=== PATIENT | female | born 1970 | race Caucasian/White ===

== ENCOUNTER 2017-09-20 12:45 | Inpatient (IN) | payer OTHER ==
[2017-09-20] MEDS ORDERED: ONDANSETRON 4 MG/2 ML VIAL IVP PRN (17:29)
[2017-09-20] MEDS ORDERED: PROMETHAZINE HCL 25 MG/ML INJ IVP PRN (17:29)
[2017-09-20] MEDS ORDERED: ONDANSETRON DISINTEGRATING 4 MG TAB PO PRN (17:29)
[2017-09-20] MEDS ORDERED: oxyCODONE IR 5 MG TAB PO PRN (17:29)
[2017-09-20] MEDS ORDERED: PROMETHAZINE HCL 25 MG TAB PO PRN (17:29)
[2017-09-20] MEDS ORDERED: HYDROmorphONE/DILAUDID 1 MG/ML INJ IVP PRN (17:29)
--- NOTE | 2017-09-20 17:45 | PDGENHP ---
History and Physical - Chief Complaint transfer from [facility] with alcoholic pancreatitis - History of Present Illness 47 yo female with h/o anxiety, insomnia, and alcohol dependence is transferred to [facility] from [facility] for insurance purposes with alcohol induced hepatitis. She has been drinking more heavily recently due to increased anxiety and trouble sleeping. She drinks a full bottle of vodka every few days. She states her last drink was 3 weeks ago, but she is noticebly tremulous. She c/o dizzy spells (lightheaded), unstable on her feet. She began to notice abdominal swelling / bloating and yellow skin and presented to [facility]. She was found to have elevated liver enzymes and CT showed colon wall inflammation, along with an enlarged liver. She underwent ERCP due elevated WBC's and concern for cholangitis, but there was no evidence of choledocholithiasis. Some mild dilation of the ___ was noted however possibly due to cholestasis. She denies fevers/chills/sweats. A little nausea, but no vomiting. She reports diarrhea. She hasn't eaten much other than protein shakes at home. At [facility], she was treated with Ceftriaxone and Levaquin. No ERCP was recommended History Information - Allergies/Home Medication List Allergies/Adverse Reactions: No Known Allergies Allergy (Unverified 02/26/16 23:12) Home Medications: Ibuprofen [Motrin] 200 - 400 mg PO Q8 PRN 03/14/16 [Last Taken Unknown] Levothyroxine [Synthroid] 75 mcg PO DAILY06 03/14/16 [Last Taken 09/20/17] Multivitamins [Tab-A-Viola] 1 each PO DAILY 03/14/16 [Last Taken Unknown] Zolpidem Tartrate [Ambien 10 mg] 10 mg PO HS PRN 03/14/16 [Last Taken 09/19/17] Mirtazapine [Remeron] 30 mg PO HS 09/20/17 [Last Taken 09/15/17] OLANZapine [Zyprexa] 7.5 mg PO HS 09/20/17 [Last Taken 09/15/17] I have personally reviewed and updated: family history, medical history, social history, surgical history - Past Medical History Additional medical history: anxiety. insomnia. hypothyroidism. alcohol abuse - Surgical History Reports: hysterectomy Additional surgical history: - Family History Additional family history: paternal GF was an alcoholic. both parents just of cancer, dad had GBM, mom had ovarian cancer - Social History Smoking Status: Current some day smoker Alcohol Use: Heavy Drug Use: None Additional social history: Lives in [place] with a roommate. 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 Review of Systems Review of Systems: ROS: 10pt was reviewed & negative except for what was stated in HPI & below Physical Exam Physical Exam: Temp Pulse Resp BP Pulse Ox 36.4 C 93 16 103/70 97 09/20/17 15:46 09/20/17 15:46 09/20/17 15:46 09/20/17 15:46 09/20/17 15:46 O2 (L/minute) 2 Constitutional: no apparent distress Eyes: PERRL, scleral injection Ears, Nose, Mouth, Throat: dry mucous membranes Cardiovascular: regular rate and rhythym, no murmur, rub, or gallop Respiratory: no respiratory distress, clear to auscultation Gastrointestinal: other (soft, moderately distended, +TTP RUQ, epigastrium, + hepatomegaly, liver edge palpated ~4 cm below costal margin, +BS) Skin: warm Musculoskeletal: full muscle strength Neurologic: AAOx3, other (+tremor) Psychiatric: interacting appropriately Lab Data & Imaging Review 09/21/17 05:03 09/21/17 05:03 Assessment & Plan Assessment: Elevated LFT's likely due to alcoholic hepatitis - Bili was [address] [facility] yesterday, but nl INR and DF ~19, not a candidate for steroids. Reviewed imaging including CT which showed non-specific colitis and MRCP which was negative for choledocholithiasis, but did show some ductal dilatation and possible cholestasis. Discussed with GI, Dr. Nation will see in am for consideration of ERCP. NPO at midnight. Will continue Ceftriaxone and Flagyl for short course, tomorrow is day 3/5 (wbc's 20K yest). Plan for supportive care, IVF's. Trend LFT's. I did not see hepatitis panel, will send. Alcohol dependence, suspect withdrawal - she is tremulous, though says last drink was 3 weeks ago. Will initiate CIWA / prn bzd's. Anxiety - related to above. She was recently started on remeron and zyprexa but had untoward side effects and stopped these meds 1 week ago. Hyponatremia - mild, cont NS and follow Anemia - suspect BM suppression 2/2 etoh. No e/o active bleeding. Follow. Full code DVT PPLX - SCD's, ambulation Dispo - inpt, anticipate >48 hrs hospitalization for ongoing management of alcoholic hepatitis
[2017-09-20] MEDS ORDERED: NON-FORMULARY NEW DRUG (Zolpidem Tartrate [Ambien 10 Mg] 5 MG) PO PRN (18:22)
[2017-09-20] MEDS ORDERED: ZOLPIDEM TARTRATE 5 MG TAB PO PRN (18:25)
[2017-09-20 18:31] LABS: INR 1.07 (0.83-1.16); PROTIME(PATIENT) 14.1 SEC (12.0-15.0)
[2017-09-20 19:41] LABS: PLATELET COUNT 454 10^3/uL (150-400)
--- NOTE | 2017-09-20 20:10 | PDMN ---
Medical Necessity Medical necessity: Pt meets INPT criteria per and [facility] [place] Disease Complications (est. LOS >2 MN for eval/tx of elevated LFTs likely due to alcoholic hepatitis, GI consult pending for consideration of ERCP; req IVF, IVABx; alcohol withdrawal, anxiety, anemia, hyponatremia, hypokalemia).
[2017-09-21 05:44] LABS: PLATELET COUNT 412 10^3/uL (150-400)
[2017-09-21] MEDS: LEVOTHYROXINE 75 MCG TAB PO SCH (06:23)
[2017-09-21] MEDS: NS W/ 20 KCl/L 1,000 ML IV SCH ×2 (06:25→18:09)
[2017-09-21 07:34] LABS: HEPATITIS B SURFACE ANTIGEN NEGATIVE (NEGATIVE)
[2017-09-21 07:40] LABS: HEPATITIS A ANTIBODY IGM (BCH) NEGATIVE (NEGATIVE); HEPATITIS B CORE AB IGM NEGATIVE (NEGATIVE)
[2017-09-21 07:51] LABS: HEPATITIS C ANTIBODY TOTAL NEGATIVE (NEGATIVE)
[2017-09-21] MEDS: THIAMINE HCL 500 MG in NS 100 ML IV SCH (10:23)
--- NOTE | 2017-09-21 10:51 | HOSPPROG ---
Hospitalist Progress Note Assessment/Plan: 47 yo F w alcoholic hepatitis, colitis colitis: day 4/5 abx alcoholic hepatitis: low DF so no steroids follow lft's MRCP at OSH w steatosis distension: no ascites on u/s at [facility] exam not really c/w ascites check abd film to rule out constipation proph: scd's hypothyroidism: levothyroxine restarted dispo: inpt Subjective: c/o abd pain. osh rcords reviewed. d/w at [facility] Objective: Vital Signs Temp Pulse Resp BP Pulse Ox 36.7 C 92 16 103/76 93 09/21/17 10:44 09/21/17 10:44 09/21/17 10:44 09/21/17 10:44 09/21/17 10:44 Laboratory Results 09/21/17 05:03 09/21/17 05:03 09/20/17 09/21/17 09/22/17 05:59 05:59 05:59 Intake Total 975 Balance 975 PT 14.1 SEC (12.0-15.0) 09/20/17 18:10 INR 1.07 (0.83-1.16) 09/20/17 18:10 - Physical Exam Constitutional: no apparent distress, appears nourished Eyes: icteric sclera, pale conjunctiva Ears, Nose, Mouth, Throat: moist mucous membranes, hearing normal Cardiovascular: regular rate and rhythym, no murmur, rub, or gallop Respiratory: no respiratory distress, no rales or rhonchi Gastrointestinal: normoactive bowel sounds, soft, non-tender abdomen, other ( distended but no clear fluid wave) Genitourinary: No mckeon in urethra Skin: warm, normal color Musculoskeletal: full muscle strength Neurologic: AAOx3, sensation intact bilaterally Psychiatric: interacting appropriately, not anxious ICD10 Worksheet Patient Problems: Problems Problem Status Onset Anemia Acute Anxiety Acute Leukopenia Acute
[2017-09-21] MEDS: oxyCODONE IR 5 MG TAB PO PRN ×3 (13:54→23:26)
[2017-09-21] MEDS: MULTIVITAMINS 1 EACH TAB PO SCH (14:05)
[2017-09-21] MEDS: PANTOPRAZOLE SODIUM 40 MG TAB PO SCH (14:05)
[2017-09-21] MEDS: FOLIC ACID 1 MG TAB PO SCH (14:05)
--- NOTE | 2017-09-21 14:17 | GCON ---
[f rep st] CONSULTATION DATE OF CONSULTATION: 09/21/2017 CHIEF COMPLAINT: Abnormal liver function tests. REASON FOR CONSULTATION: I am asked to see this patient in consultation by Dr. Sadler for a chief c omplaint of abnormal liver tests. HISTORY OF PRESENT ILLNESS: Patient is a 47-year-old with a long history of alcohol use who was admi tted to [facility] with jaundice and noted to have abnormal liver function tests. She was evalu ated by Gastroenterology at [facility] by Dr. Linh Joaquin on September 19, 2017. An MRCP was ob tained and recommendation is that patient did not need an ERCP at this time. It was felt that her li michelle function tests were elevated from alcohol use. Discriminant function did not meet criteria for s teroids. They did recommend empiric ceftriaxone and Flagyl and an outpatient colonoscopy. Patient w as then transferred to [facility], apparently due to insurance reasons. GI consultat ion is requested for evaluation of abnormal liver tests. At this point, patient notes abdominal disc omfort in the epigastric area. No nausea or vomiting. There has been no hematemesis. She has had n o blood in her stools. No melena. She does have some intermittent loose stools, small amount of sto ol today. MRCP was done at [facility] September 19, 2017, showed enlargement of the liver with pe rihepatic ascites consistent with hepatitis. There is moderate to severe fatty infiltration, mild in trahepatic duct dilation without cholelithiasis, which could reflect cholestasis according to the rep ort. No other abnormality identified. Ultrasound of the abdomen done on 09/19/2017 shows no sonogra phic evidence of cholecystitis or cholelithiasis. There is prominent hepatomegaly and steatosis. Mi ld biliary dilation. The liver is markedly enlarged at 24 cm. ALLERGIES: No known drug allergies. MEDICATIONS: Currently, patient is on ceftriaxone that was initiated at [facility] for a 5 day course. Folic acid, Levaquin, Synthroid, lorazepam, ondansetron, thiamine. PAST MEDICAL HISTORY: Notable for alcohol abuse, anxiety, insomnia, hypothyroidism. She is status p ost hysterectomy. FAMILY HISTORY: Grandfather was alcoholic. Both parents of cancer. SOCIAL HISTORY: Patient drinks alcohol. REVIEW OF SYSTEMS: I have performed a complete review of systems, which was negative except for the pertinent positives and negatives noted above in HPI. PHYSICAL EXAMINATION: VITAL SIGNS: Afebrile at 36.7, BP 103/76, pulse 92. CONSTITUTIONAL: She is alert and oriented. EYES: No scleral icterus. ENT: No oral lesions. CARDIOVASCULAR: Regular rhy thm. CHEST: Clear to auscultation: GI: Positive bowel sounds. Large hepatomegaly. NEUROLOGICAL: Nonfocal. SKIN: No lesions. LABORATORY DATA: Here shows a BUN and creatinine of 14 and 0.5. Elevated white count is improved to day, down to 13. H and H are 9 and 26.6. Platelets 412. Pro time is normal at 14.1. Chemistries s how improvement with alkaline phosphatase of 134, AST 69, ALT 80, both of which have improved. Total bilirubin is improved to 8.8, down from 11.1 yesterday. Amylase has not been obtained this admissio n. Discriminant factor is less than 32. ASSESSMENT: 1. Elevated liver function tests secondary to alcohol consistent with alcoholic hepatitis. However, she does not make criteria for steroids and overall, her liver tests are improving. It seems that h er bilirubin is now coming down. There was some concern about a slightly dilated common bile duct on ultrasound. However, she did have an ERCP without filling defects. The opinion of the gastroentero logists at [facility] was that she does not need an ERCP, and I would concur with that, as I think we hav e an explanation for her abnormal liver function tests. 2. Abdominal pain, nonspecific. Suspect this may be from her very enlarged liver. She does not hav e any evidence of gastrointestinal bleeding at this time, although there was a CT scan report that luh lopez may have had some inflammatory changes in her colon. She is not having any bleeding or diarrhea at this time. The Gastroenterology report from [facility] suggested outpatient colonoscopy, which I think is reasonable because overall, patient would be higher risk for any diagnostic endoscopy at this time . I would prefer more conservative measures. PLAN: 1. No alcohol. 2. Would not proceed with ERCP at this time but continue to monitor her LFTs. 3. Suggest a PPI, perhaps add Carafate. Okay to advance diet. 4. Recommend colonoscopy as an outpatient. However, if patient should develop diarrhea, then I woul d recommend checking C difficile and GI path panel before considering colonoscopy. /[id number]/MODL
--- NOTE | 2017-09-21 17:35 | ASMTCMCOM ---
CM Note CM Note Notes: Pt was transferred here from [facility] for insurance purposes. 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 Dc needs unclear, will talk to patient about etoh cessation. Date Signed: 09/21/2017 05:35 PM Electronically Signed By:Ruby Messer RN
[2017-09-21] MEDS: LORazepam 1 MG/0.5 ML UDSYR PO PRN (18:08)
[2017-09-21] MEDS: ZOLPIDEM TARTRATE 5 MG TAB PO PRN (23:26)
[2017-09-22] MEDS: LEVOTHYROXINE 75 MCG TAB PO SCH (05:51)
[2017-09-22] MEDS: FOLIC ACID 1 MG TAB PO SCH (08:12)
[2017-09-22] MEDS: MULTIVITAMINS 1 EACH TAB PO SCH (08:12)
[2017-09-22] MEDS: PANTOPRAZOLE SODIUM 40 MG TAB PO SCH (08:12)
[2017-09-22] MEDS: oxyCODONE IR 5 MG TAB PO PRN ×4 (08:22→20:17)
[2017-09-22] MEDS: LORazepam 1 MG/0.5 ML UDSYR PO PRN ×4 (08:22→20:26)
[2017-09-22] MEDS: THIAMINE HCL 500 MG in NS 100 ML IV SCH (09:18)
--- NOTE | 2017-09-22 12:01 | SOAPPROG ---
SOAP Progress Note Assessment/Plan: Assessment: 1. ETOH liver disease with acute acholoic hepatitis. Overall bili improving 2. Abd distension suspect from very enlarged liver due to problem # 1. 3. Mildly dilated CBD (8mm) but otherwise negative MRCP with out obstruction. Discussed with Dr. Trinidad who agrees would not due ERCP at this time. Could consider EUS if not improving. Plan: Continue supportive care Recommend due U/S with doppler flow if not done already at [facility] 09/22/17 11:57 Subjective: CC jaundice Pt c/o abd distention Objective: Vital Signs Temp Pulse Resp BP Pulse Ox 36.3 C 101 H 18 110/75 96 09/22/17 10:24 09/22/17 10:24 09/22/17 10:24 09/22/17 10:24 09/22/17 10:24 Laboratory Results 09/21/17 05:03 09/22/17 05:06 09/21/17 09/22/17 09/23/17 05:59 05:59 05:59 Intake Total 975 3022 Balance 975 3022 PT 14.1 SEC (12.0-15.0) 09/20/17 18:10 INR 1.07 (0.83-1.16) 09/20/17 18:10 Physical Exam - Physical Exam General Appearance: alert, no apparent distress Respiratory: lungs clear Cardiac/Chest: regular rate, rhythm Abdomen: soft, distended ICD10 Worksheet Patient Problems: Problems Problem Status Onset Anemia Acute Anxiety Acute Leukopenia Acute
--- NOTE | 2017-09-22 14:51 | HOSPPROG ---
Hospitalist Progress Note Assessment/Plan: 47 yo F w alcoholic hepatitis, colitis. First encounter, chart reviewed. D/W Dr Nation. colitis: day 01/07 abx stop after today alcoholic hepatitis: low DF so no steroids follow lft's MRCP at OSH w steatosis US with doppler today see GI note distension: US with doppler exam not really c/w ascites proph: scd's hypothyroidism: levothyroxine restarted Dispo unclear, still really uncomfortable D/W CM cont supportive care Subjective: Still feeling ill. Feels dizzy when up. Still ahving some abdominal discomfort. Objective: Vital Signs Temp Pulse Resp BP Pulse Ox 36.4 C 99 18 103/67 94 09/22/17 14:18 09/22/17 14:18 09/22/17 14:18 09/22/17 14:18 09/22/17 14:18 Laboratory Results 09/21/17 05:03 09/22/17 05:06 09/21/17 09/22/17 09/23/17 05:59 05:59 05:59 Intake Total 975 3022 Balance 975 3022 PT 14.1 SEC (12.0-15.0) 09/20/17 18:10 INR 1.07 (0.83-1.16) 09/20/17 18:10 - Physical Exam Constitutional: appears nourished, chronically ill appearing, uncomfortable Eyes: PERRL, EOMI, icteric sclera Ears, Nose, Mouth, Throat: moist mucous membranes, hearing normal, ears appear normal Cardiovascular: regular rate and rhythym, edema, No JVD Respiratory: no respiratory distress, no rales or rhonchi, reduced air movement Gastrointestinal: tenderness, distension, No ascites Skin: warm, normal color, No erythema Musculoskeletal: normal joint ROM, no joint effusions, generalized weakness Neurologic: AAOx3 Psychiatric: interacting appropriately, not anxious, not encephalopathic, thought process linear ICD10 Worksheet Patient Problems: Problems Problem Status Onset Anxiety Acute Anemia Acute Leukopenia Acute
[2017-09-22] MEDS: NS W/ 20 KCl/L 1,000 ML IV SCH (15:28)
--- NOTE | 2017-09-22 17:36 | ASMTCMCOM ---
CM Note CM Note Notes: RN CM colleague asked that SWer see Pt. for ETOH cessation support. Bedside RN states Pt. is on CIWA protocol and showing signs of withdrawal. Daughter Rivka in the room and Pt. is OK with SWer meeting with dtr in room. Pt. is a 47-year-old woman admitted with alcohol induced hepatitis and colitis. Hx. anxiety and insomnia, ETOH dependence, and some smoking. Per Pt. her parents of cancer some three years apart in the past few years. Pt. states their loss has exacerbated her drinking. Pt. states she drinks to self medicate her anxiety and insomnia. States her mind races at night and she cannot sleep. Pt. has been medicated with prescription drugs in past, but didn't really help per Pt. Discussed toxic effects of too much ETOH on the body. Asked Pt. and dtr to consult w/ MD about the details of the alcoholic hepatitis. Discussed Pt's feelings and treatment of anxiety. Pt. willing to go to counseling and explore medication that might help. Daughter discussed sleep being helped by exercise. SWer provided list of four sliding scale counseling services and also asked dtr to help call insurance to see if any behavioral health benefits. Plan for independent d/c when ready. CM available should d/c POC change. Date Signed: 09/22/2017 05:25 PM Electronically Signed By:Gely Irizarry LCSW
[2017-09-22] MEDS: ZOLPIDEM TARTRATE 5 MG TAB PO PRN (22:21)
[2017-09-23] MEDS: LEVOTHYROXINE 75 MCG TAB PO SCH (06:32)
[2017-09-23] MEDS: oxyCODONE IR 5 MG TAB PO PRN ×2 (06:33→12:31)
[2017-09-23] MEDS ORDERED: cefTRIAXone 1 GM in STERILE WATER INJ 10 ML IV SCH (09:00)
[2017-09-23] MEDS: FOLIC ACID 1 MG TAB PO SCH (09:04)
[2017-09-23] MEDS: MULTIVITAMINS 1 EACH TAB PO SCH (09:04)
[2017-09-23] MEDS: PANTOPRAZOLE SODIUM 40 MG TAB PO SCH (09:04)
[2017-09-23] MEDS: THIAMINE HCL 500 MG in NS 100 ML IV SCH (09:06)
--- NOTE | 2017-09-23 11:00 | SOAPPROG ---
SOAP Progress Note Assessment/Plan: Assessment: 1. ETOH liver disease with acute acholoic hepatitis. Overall bili improving 2. Abd distension suspect from very enlarged liver due to problem # 1. 3. Mildly dilated CBD (8mm) but otherwise negative MRCP with out obstruction. Discussed with Dr. Trinidad who agrees would not due ERCP at this time. Could consider EUS if not improving. Plan: Continue supportive care Recommend due U/S with doppler flow if not done already at [facility] 09/23/17 10:56 Assessment: 1. U/S with slow flow through hepatic vein and Right hep vein not seen. Will discuss with radiology if this could represent sub acute Budd Chiari. Patient has recannulation of umbilical vein which could prevent accumulation of ascites 2. ETOH liver disease 3. Elevated bili presumed from ETOH improving. CBD is more dilated ow at 11 cm, recent MRCP neg. Consider ? EUS Subjective: CC Abd pain Pt with continued pain no significant change for past 4 weeks Objective: Vital Signs Temp Pulse Resp BP Pulse Ox 36.7 C 97 16 103/72 94 09/23/17 08:00 09/23/17 08:00 09/23/17 08:00 09/23/17 08:00 09/23/17 08:00 Laboratory Results 09/21/17 05:03 09/23/17 05:18 09/22/17 09/23/17 09/24/17 05:59 05:59 05:59 Intake Total 3022 1342 Balance 3022 1342 PT 14.1 SEC (12.0-15.0) 09/20/17 18:10 INR 1.07 (0.83-1.16) 09/20/17 18:10 Physical Exam - Physical Exam General Appearance: alert Respiratory: lungs clear Cardiac/Chest: regular rate, rhythm Abdomen: soft (tender liver), distended ICD10 Worksheet Patient Problems: Problems Problem Status Onset Anemia Acute Anxiety Acute Leukopenia Acute
[2017-09-23] MEDS: LORazepam 1 MG/0.5 ML UDSYR PO PRN ×3 (11:49→23:31)
--- NOTE | 2017-09-23 13:35 | HOSPPROG ---
Hospitalist Progress Note Assessment/Plan: 47 yo F w alcoholic hepatitis, colitis. D/W Dr Nation. colitis: day 01/07 abx stop alcoholic hepatitis: low DF so no steroids follow lft's MRCP at OSH w steatosis US with doppler unclear see GI note distension: unchanged exam not really c/w ascites proph: scd's hypothyroidism: levothyroxine Dispo unclear, still really uncomfortable D/W CM cont supportive care may need further intervention Subjective: Still having significant discomfort. Not hungry. Objective: Vital Signs Temp Pulse Resp BP Pulse Ox 36.6 C 94 16 96/70 L 96 09/23/17 11:46 09/23/17 11:46 09/23/17 08:00 09/23/17 11:46 09/23/17 11:46 Laboratory Results 09/21/17 05:03 09/23/17 05:18 09/22/17 09/23/17 09/24/17 05:59 05:59 05:59 Intake Total 3022 1342 Balance 3022 1342 PT 14.1 SEC (12.0-15.0) 09/20/17 18:10 INR 1.07 (0.83-1.16) 09/20/17 18:10 - Physical Exam Constitutional: chronically ill appearing, obese, uncomfortable Eyes: PERRL, EOMI, icteric sclera Ears, Nose, Mouth, Throat: moist mucous membranes, hearing normal, ears appear normal Cardiovascular: regular rate and rhythym, No JVD, No edema Respiratory: no respiratory distress, no rales or rhonchi, reduced air movement Gastrointestinal: tenderness, hepatosplenomegally, distension, No soft, non- tender abdomen Skin: warm, normal color, No erythema Musculoskeletal: normal joint ROM, no joint effusions, generalized weakness Neurologic: AAOx3 Psychiatric: not encephalopathic, thought process linear, poor insight, poor judgement ICD10 Worksheet Patient Problems: Problems Problem Status Onset Anxiety Acute Anemia Acute Leukopenia Acute
[2017-09-23] MEDS: HYDROmorphONE/DILAUDID 2 MG TAB PO PRN ×3 (15:54→23:30)
[2017-09-23] MEDS: ZOLPIDEM TARTRATE 5 MG TAB PO PRN (23:30)
[2017-09-24] MEDS: LEVOTHYROXINE 75 MCG TAB PO SCH (03:33)
[2017-09-24] MEDS: HYDROmorphONE/DILAUDID 2 MG TAB PO PRN ×6 (03:33→23:32)
[2017-09-24] MEDS: LORazepam 1 MG/0.5 ML UDSYR PO PRN ×6 (03:34→23:32)
--- NOTE | 2017-09-24 10:25 | SOAPPROG ---
STEVEN Progress Note Assessment/Plan: Assessment:Plan: 1) Alc hep - no alcohol, MDF not high enough to warrant steroids 2) abdo pain - related to hepatomegaly form alc hep 3) LFT's - improving c/w resolving alc hep -- i will order Hep A ab total and Hep B surf Ab to assess for immunity 4) Diet - I would like her to be taking in [id number] calories per day 5) hepatic veins - will review sono Doppler with radiology, I think her issues are all from alc hep 6) pulm - query hepatic hydrothorax - will order CXR PA and lateral 7) TSH - as per hospitalists will follow 09/24/17 10:33 Subjective: cc- alc hep pt has abdo pain and some radiation to back, does have some MEDRANO Objective: Vital Signs Temp Pulse Resp BP Pulse Ox 36.6 C 88 16 89/65 L 99 09/24/17 07:01 09/24/17 07:01 09/24/17 07:01 09/24/17 07:01 09/24/17 07:01 Laboratory Results 09/21/17 05:03 09/23/17 05:18 09/23/17 09/24/17 09/25/17 05:59 05:59 05:59 Intake Total 1342 2060 Balance 1342 2060 PT 14.1 SEC (12.0-15.0) 09/20/17 18:10 INR 1.07 (0.83-1.16) 09/20/17 18:10 A+Ox3 decreased BS lower lung stafford, no egophony, no rales S1S2, RRR +BS, soft tender over enlarged liver Laboratory Tests 09/20/17 09/20/17 09/21/17 18:10 18:10 05:03 Total Bilirubin 11.1 H 8.8 H AST 218 H 169 H ALT 91 H 80 H Alkaline Phosphatase 175 H 134 H TSH 10.100 H 09/22/17 09/23/17 05:06 05:18 Total Bilirubin 7.5 H 6.8 H AST 166 H 168 H ALT 79 H 78 H Alkaline Phosphatase 135 H 140 H TSH ICD10 Worksheet Patient Problems: Problems Problem Status Onset Anemia Acute Anxiety Acute Leukopenia Acute
[2017-09-24] MEDS: PANTOPRAZOLE SODIUM 40 MG TAB PO SCH (10:38)
[2017-09-24] MEDS: FOLIC ACID 1 MG TAB PO SCH (10:38)
[2017-09-24] MEDS: MULTIVITAMINS 1 EACH TAB PO SCH (10:39)
[2017-09-24] MEDS: THIAMINE HCL 100 MG TAB PO SCH (10:39)
--- NOTE | 2017-09-24 12:35 | ASMTCMCOM ---
CM Note CM Note Notes: Today hospitalist believes Pt. is deconditioned to the degree that she needs SNF rehab. Pt. amenable per hospitalist. Hospitalist ordered PT and OT consults. SWer faxed referrals through [employer] to multiple SNFs. Pt's insurance is through the Affordable Care Act marketplace. Unsure what her SNF rehab benefits might be. Please f/u with [employer] to see if Pt. accepted. CM to follow for d/c POC. Date Signed: 09/24/2017 12:34 PM Electronically Signed By:Gely Irizarry LCSW
--- NOTE | 2017-09-24 13:57 | HOSPPROG ---
Hospitalist Progress Note Assessment/Plan: 47 yo F w alcoholic hepatitis, colitis. D/W Dr Larson. colitis: abx complete resolved alcoholic hepatitis: low DF so no steroids follow lft's, improving MRCP at OSH w steatosis US with doppler unclear see GI note distension: unchanged exam not really c/w ascites proph: scd's hypothyroidism: levothyroxine Dispo unclear, still really uncomfortable D/W CM cont supportive care may need further intervention consider SNF PT/OT eval ordered Subjective: Still feeling really weak. Having pain. Not hungry. Objective: Vital Signs Temp Pulse Resp BP Pulse Ox 36.9 C 96 16 99/73 L 97 09/24/17 11:57 09/24/17 11:57 09/24/17 11:57 09/24/17 11:57 09/24/17 11:57 Laboratory Results 09/21/17 05:03 09/23/17 05:18 09/23/17 09/24/17 09/25/17 05:59 05:59 05:59 Intake Total 1342 2060 Balance 1342 2060 PT 14.1 SEC (12.0-15.0) 09/20/17 18:10 INR 1.07 (0.83-1.16) 09/20/17 18:10 - Physical Exam Constitutional: chronically ill appearing, obese, uncomfortable Eyes: PERRL, EOMI, icteric sclera Ears, Nose, Mouth, Throat: moist mucous membranes, hearing normal, ears appear normal Cardiovascular: edema, No JVD, No tachycardia Respiratory: no respiratory distress, no rales or rhonchi, reduced air movement Gastrointestinal: tenderness, distension, No ascites Skin: warm, normal color, No erythema Musculoskeletal: normal joint ROM, no joint effusions, generalized weakness Neurologic: AAOx3 Psychiatric: not encephalopathic, thought process linear, flat affect, poor insight, poor judgement ICD10 Worksheet Patient Problems: Problems Problem Status Onset Anxiety Acute Anemia Acute Leukopenia Acute
[2017-09-24] MEDS: ZOLPIDEM TARTRATE 5 MG TAB PO PRN (23:32)
[2017-09-25] MEDS: HYDROmorphONE/DILAUDID 2 MG TAB PO PRN ×5 (03:39→22:58)
[2017-09-25] MEDS: LEVOTHYROXINE 75 MCG TAB PO SCH (03:40)
[2017-09-25] MEDS: LORazepam 1 MG/0.5 ML UDSYR PO PRN ×5 (03:40→22:58)
[2017-09-25 05:28] LABS: PLATELET COUNT 410 10^3/uL (150-400)
[2017-09-25] MEDS: FOLIC ACID 1 MG TAB PO SCH (10:09)
[2017-09-25] MEDS: PANTOPRAZOLE SODIUM 40 MG TAB PO SCH (10:09)
[2017-09-25] MEDS: MULTIVITAMINS 1 EACH TAB PO SCH (10:09)
[2017-09-25] MEDS: THIAMINE HCL 100 MG TAB PO SCH (10:13)
--- NOTE | 2017-09-25 10:45 | SOAPPROG ---
STEVEN Progress Note Assessment/Plan: Assessment:Plan: 1) Alc hep - no alcohol, MDF not high enough to warrant steroids 2) abdo pain - related to hepatomegaly form alc hep 3) LFT's - improving c/w resolving alc hep -- i will order Hep A ab total and Hep B surf Ab to assess for immunity 4) Diet - I would like her to be taking in 1431-2821 calories per day 5) hepatic veins - will review sono Doppler with radiology, I think her issues are all from alc hep 6) pulm - query hepatic hydrothorax - will order CXR PA and lateral 7) TSH - as per hospitalists will follow 09/24/17 10:33 09/25/17 10:43 as above A/P 1) alc hep - abstinence - no need for steroids given MDF 2) abdo pain - from enlarged liver from alc hep 3) diet - encourage increased po intake 4) pulm - prob atelectasis on CXR - will order incentive spirometer 5) activity - need her to ambulate and get in chair multiple times per day 6) dispo - I agree with SNF for a bit, she will need some program to help with her alcoholism I will sign off recall if needed thank you Subjective: cc- alc hep still c/o abdo pain doesn't seem realistic about issue and discharge I told her she would benefit form SNF and not going home right away Objective: Vital Signs Temp Pulse Resp BP Pulse Ox 36.7 C 93 18 90/62 L 95 09/25/17 07:02 09/25/17 07:02 09/25/17 07:02 09/25/17 07:02 09/25/17 07:02 Laboratory Results 09/25/17 05:11 09/23/17 05:18 09/24/17 09/25/17 09/26/17 05:59 05:59 05:59 Intake Total 2059 750 Balance 2059 750 PT 14.1 SEC (12.0-15.0) 09/20/17 18:10 INR 1.07 (0.83-1.16) 09/20/17 18:10 A+Ox3 decreased BS bases S1S2 +BS, soft tender over enlarged liver ICD10 Worksheet Patient Problems: Problems Problem Status Onset Anemia Acute Anxiety Acute Leukopenia Acute
--- NOTE | 2017-09-25 12:32 | HOSPPROG ---
Hospitalist Progress Note Assessment/Plan: 47 yo F w alcoholic hepatitis, colitis. D/W Dr Larson. colitis: abx complete resolved alcoholic hepatitis: low DF so no steroids follow lft's, improving MRCP at OSH w steatosis US with doppler stable see GI note distension: unchanged exam not really c/w ascites proph: scd's hypothyroidism: levothyroxine Dispo unclear, still really uncomfortable D/W CM cont supportive care may need further intervention SNF in 1-2 days PT/OT eval Subjective: Feeling a bit better. Still unable to care for herself. Objective: Vital Signs Temp Pulse Resp BP Pulse Ox 36.6 C 102 H 18 90/64 L 95 09/25/17 11:19 09/25/17 11:19 09/25/17 11:19 09/25/17 11:19 09/25/17 11:19 Laboratory Results 09/25/17 05:11 09/23/17 05:18 09/24/17 09/25/17 09/26/17 05:59 05:59 05:59 Intake Total 2059 750 Balance 2059 750 PT 14.1 SEC (12.0-15.0) 09/20/17 18:10 INR 1.07 (0.83-1.16) 09/20/17 18:10 - Physical Exam Constitutional: chronically ill appearing, obese, uncomfortable Eyes: PERRL, anicteric sclera, EOMI Ears, Nose, Mouth, Throat: moist mucous membranes, hearing normal, ears appear normal Cardiovascular: regular rate and rhythym, No JVD, No edema Respiratory: no respiratory distress, no rales or rhonchi, reduced air movement Gastrointestinal: normoactive bowel sounds, tenderness, distension, No ascites Skin: warm, normal color, No erythema Musculoskeletal: normal joint ROM, no joint effusions, generalized weakness Neurologic: AAOx3 Psychiatric: not encephalopathic, poor insight, poor judgement, poor memory ICD10 Worksheet Patient Problems: Problems Problem Status Onset Anxiety Acute Anemia Acute Leukopenia Acute
[2017-09-25] MEDS: ZOLPIDEM TARTRATE 5 MG TAB PO PRN (22:59)
[2017-09-26 02:25] LABS: HEPATITIS A ANTIBODY TOTAL NEGATIVE (NEGATIVE); HEPATITIS C ANTIBODY TOTAL NEGATIVE (NEGATIVE)
[2017-09-26] MEDS: LEVOTHYROXINE 75 MCG TAB PO SCH (06:27)
[2017-09-26] MEDS: HYDROmorphONE/DILAUDID 2 MG TAB PO PRN ×3 (06:31→20:26)
[2017-09-26] MEDS: LORazepam 1 MG/0.5 ML UDSYR PO PRN ×3 (06:32→20:27)
[2017-09-26] MEDS: PANTOPRAZOLE SODIUM 40 MG TAB PO SCH (09:32)
[2017-09-26] MEDS: FOLIC ACID 1 MG TAB PO SCH (09:32)
[2017-09-26] MEDS: MULTIVITAMINS 1 EACH TAB PO SCH (09:32)
[2017-09-26] MEDS: THIAMINE HCL 100 MG TAB PO SCH (09:33)
[2017-09-26] MEDS: oxyCODONE IR 5 MG TAB PO PRN (09:47)
--- NOTE | 2017-09-26 15:50 | PDHOMEO2F ---
Home Oxygen Face to Face Home Orders: I certify that a physician or a nurse practitioner or physician's anesthesiologist assistant certified has had a [id number] encounter with this patient on the date of this order due to the diagnosis listed, which relates to the primary reason the patient requires home oxygen. Alternative treatments have been tried, or considered, and deemed ineffective. It is anticipated that supplemental oxygen will result in improvement with treatment. Home oxygen qualifying diagnosis: Asthma SpO2 on room air (%): 86 Frequency of home oxygen needed: continuous Home oxygen liters per minute: 2 Home oxygen delivery device: nasal cannula Concentrator: Yes E-tanks for mobility and back up: Yes If ordering portable O2, is the patient mobile in the home?: Yes I certify that, based on these findings, the home oxygen is medically necessary for this patient for the following length of time. Length of time home oxygen needed: 1 month
--- NOTE | 2017-09-26 16:01 | ASMTCMCOM ---
CM Note CM Note Notes: Spoke with patient today and she does not want to go for SNF placement or have home care check on her. She states she will go home with her daughter Maru for a couple of days to get stronger. Spoke with patient's daughter Maru who states she can take her mother home but was distressed about her mother being in denial re: her current medical condition and refusal to go for rehab care. Maru requested a conference call to include her Aunt Shannon, patient's sister. Spoke at length with both and encouraged them to consider a family intervention and to get professional help with setting it up and conducting it. is a good resource to help with this. The family is hoping to convince patient to go back to [place] with her sister where she can get rehab and have lots of family support. Maru can pick patient up at 7:00 PM this evening. She has to complete payroll and cant leave her job until it is done.Patient was asked several times about SNF rehab and she continued to say no. Daughter Maru will have to clean up patient's home before she returns to it as it is in disarray and unsuitable for patient to handle herself at this time. No further needs at this time. CM available if something changes. Date Signed: 09/26/2017 04:00 PM Electronically Signed By:Ciera Drew LCSW
--- NOTE | 2017-09-26 16:41 | PDIAF ---
- Diagnosis Diagnosis: alcoholic hepatits Code Status: Full Code - Medication Management Discharge Medications: Medications to Continue on Transfer Levothyroxine [Synthroid 75 mcg (*)] 75 mcg PO DAILY06 03/14/16 [Last Taken ] OLANZapine [Zyprexa] 7.5 mg PO HS 09/20/17 [Last Taken 09/15/17] Folic Acid [Folic Acid 1 MG (*)] 1 mg PO DAILY tab 09/26/17 [Last Taken Unknown ] HYDROmorphone HCL [Dilaudid 2 mg (*)] 2 mg PO Q4HRS PRN #15 tab 09/26/17 [Last Taken Unknown] Multivitamins [Multivitamin (*)] 1 each PO DAILY tab 09/26/17 [Last Taken Unknown] Pantoprazole Sodium [Protonix 40mg (*)] 40 mg PO DAILY #30 tab 09/26/17 [Last Taken Unknown] Thiamine HCl [Vitamin B-1] 100 mg PO DAILY tab 09/26/17 [Last Taken Unknown] Discharge Medications: Refer to the Discharge Home Medication list for PRN reason. PICC Care - Routine: N/A - Orders Services needed: Home Care, Physical Therapy, Occupational Therapy Home Care Face to Face: I certify that this patient was under my care and that I had the required cxri-[id number] encounter meeting the encounter requirements on the discharge day. My findings support the fact that the patient is homebound as defined in Home Care Face to Face Continued: CMS Chapter 7 Medicare Benefits Manual 30.1.1 , The condition of the patient is such that there exists a normal inability to leave home and consequently, leaving home would require a considerable and taxing effort. Diet Recommendation: sodium restricted - Follow Up Care Current Providers and Referrals: Patient,NotPresent [Primary Care Provider] -
[2017-09-26 17:14] VITALS: BP 104/70; PULSE 100; RESP 18; TEMP 98.9; O2SAT 97
--- NOTE | 2017-09-26 17:58 | GDS ---
[f rep st] DISCHARGE SUMMARY DISCHARGE DIAGNOSES: 1. Colitis. 2. Severe alcoholic hepatitis. 3. Hypothyroidism. 4. Pain. 5. Weakness. 6. Acute hypoxemic respiratory failure. CONSULTATIONS: Gastroenterology. STUDIES AND PROCEDURES DONE: Abdominal ultrasound with Doppler. PHYSICAL EXAM: GENERAL: The patient is alert. VITAL SIGNS: Afebrile at 36.7, pulse is 103, respir atory rate is 14, blood pressure is 113/71. She is saturating 95% on 2 L, 85% on room air. I have s een and evaluated the patient on the day of discharge. HOSPITAL COURSE: The patient is an unfortunate 47-year-old female with chronic alcohol abuse. She w as transferred from [facility] to [facility] secondary to her acute decompensation. She wa s evaluated and diagnosed with: 1. Colitis. During this hospital course, she was treated with 5 days of antibiotics, and this has r esolved. 2. Severe alcoholic hepatitis. She did receive a consultation from Gastroenterology. Further nahomy p and therapy are not indicated at this time. She is slowly improving, as well as her liver function enzymes are continuing to improve. However, the patient is very decompensated, given her severe alc oholic hepatitis. She has significant abdominal distention with weakness and pain. Unfortunately, t he patient is competent to make her own decisions and she has opted to be discharged home with her andrew vera. 3. Hypothyroidism. Her Synthroid has been re-initiated, and she should follow up in the outpatient setting with her primary care physician. 4. Acute hypoxemic respiratory failure. This is in the setting of acute and severe hepatosplenomega ly with a history of asthma. The patient is requiring supplemental oxygen at the time of disposition which has been ordered for her. DISCHARGE: The patient has been offered fpc facility rehabilitation at the time of dispo sition and she is adamantly refusing. I have worked diligently with the case sealer to provide her with a safe disposition. However, she continues to refuse these options. We have also offered her [facility] health care at the time of discharge, and she continues to refuse that as well. She will be disc harged to her daughter's house, who will be caring for her, and is in agreement with home health serv ices from Physical Therapy and Occupational Therapy. The patient also requires supplemental oxygen a t the time of disposition secondary to her significant deconditioning with atelectasis and severe hep atosplenomegaly and history of asthma. She is significantly decompensated, however, does not require continued hospitalization and is safe to be discharged to a fpc facility. Again, the pa ly has adamantly refused and is, unfortunately, competent to be making these decisions. She will be discharged home to her daughter's house for further management in the outpatient setting with stro keeleyly recommended inpatient alcohol rehabilitation. The patient is refusing this at this time. [facility], her family has been contacted and plans to provide a forced intervention for her. I spent greate r than 35 minutes in the care, coordination, and management of this patient's disposition with multip le opportunities and followup being arranged for the patient. There are no pending studies. DISCHARGE MEDICATIONS: Please refer to EMR form. I have provided a prescription for Dilaudid 2 mg q .4 hours p.r.n. pain, #15, at the time of disposition, as well as Protonix, and recommended followup with vitamin therapy. She will also follow up with [facility], as well as her [facility] physician and, hopefully, inpatient alcohol rehabilitation. /[id number]/MODL
[2017-09-26] MEDS: ZOLPIDEM TARTRATE 5 MG TAB PO PRN (21:45)
--- NOTE | 2017-09-27 10:52 | ASDISCHSUM ---
Discharge Information Plan Status:Home with No Needs Medically Cleared to Leave:09/26/2017 Discharge Date:09/26/2017 10:03 PM CM D/C Disposition: ADT D/C Disposition:Home Health Service Projected Discharge Date:09/27/2017 11:00 AM Transportation at D/C: Discharge Delay Reason: Follow-Up Date:09/27/2017 11:00 AM Discharge Slot: Final Diagnosis: Placement Information Referral Type:*Usp/SNF Referral ID:[id number] Provider Name: Address 1: Phone Number: Address 2: Fax Number: City: Selection Factors: State: Patient Contact Information Contact Name:LEV Relationship:Other Address: Home Phone: City: Alternate Phone: [facility] Code: Email: Financial Information Financial Class:HMO and PPO Plans Primary Plan Desc:H[employer] [place] [employer] Primary Plan Number:[id number] Secondary Plan Desc: Secondary Plan Number: Assessment Information [facility] CM Progress Note CM Note CM Note Notes: Pt was transferred here from [email or web address] for insurance purposes. 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 Dc needs unclear, will talk to patient about etoh cessation. Date Signed: 09/21/2017 05:35 PM Electronically Signed By:Ruby Messer RN [facility] Progress Note CM Note CM Note Notes: SARITA CM colleague asked that SWer see Pt. for ETOH cessation support. Bedside RN states Pt. is on CIWA protocol and showing signs of withdrawal. Daughter Rivka in the room and Pt. is OK with SWer meeting with dtr in room. Pt. is a 47-year-old woman admitted with alcohol induced hepatitis and colitis. Hx. anxiety and insomnia, ETOH dependence, and some smoking. Per Pt. her parents of cancer some three years apart in the past few years. Pt. states their loss has exacerbated her drinking. Pt. states she drinks to self medicate her anxiety and insomnia. States her mind races at night and she cannot sleep. Pt. has been medicated with prescription drugs in past, but didn't really help per Pt. Discussed toxic effects of too much ETOH on the body. Asked Pt. and dtr to consult w/ MD about the details of the alcoholic hepatitis. Discussed Pt's feelings and treatment of anxiety. Pt. willing to go to counseling and explore medication that might help. Daughter discussed sleep being helped by exercise. SWer provided list of four sliding scale counseling services and also asked dtr to help call insurance to see if any behavioral health benefits. Plan for independent d/c when ready. CM available should d/c POC change. Date Signed: 09/22/2017 05:25 PM Electronically Signed By:Gely Irizarry LCSW [facility] Progress Note CM Note CM Note Notes: Today hospitalist believes Pt. is deconditioned to the degree that she needs SNF rehab. Pt. amenable per hospitalist. Hospitalist ordered PT and OT consults. SWer faxed referrals through [employer] to multiple SNFs. Pt's insurance is through the Affordable Care Act marketplace. Unsure what her SNF rehab benefits might be. Please f/u with [employer] to see if Pt. accepted. CM to follow for d/c POC. Date Signed: 09/24/2017 12:34 PM Electronically Signed By:Gely Irizarry LCSW [facility] CM Progress Note CM Note CM Note Notes: Spoke with patient today and she does not want to go for SNF placement or have home care check on her. She states she will go home with her daughter Maru for a couple of days to get stronger. Spoke with patient's daughter Maru who states she can take her mother home but was distressed about her mother being in denial re: her current medical condition and refusal to go for rehab care. Maru requested a conference call to include her Aunt Shannon, patient's sister. Spoke at length with both and encouraged them to consider a family intervention and to get professional help with setting it up and conducting it. is a good resource to help with this. The family is hoping to convince patient to go back to [place] with her sister where she can get rehab and have lots of family support. Maru can pick patient up at 7:00 PM this evening. She has to complete payroll and cant leave her job until it is done.Patient was asked several times about SNF rehab and she continued to say no. Daughter Maru will have to clean up patient's home before she returns to it as it is in disarray and unsuitable for patient to handle herself at this time. No further needs at this time. CM available if something changes. Date Signed: 09/26/2017 04:00 PM Electronically Signed By:Ciera Drew LCSW Intervention Information Intervention Type:*Incorrect Registration Date of Service:09/20/2017 08:08 PM Patient Type:Observation Staff Member:SARITA Santana Kerry Hours: Discipline: Severity: Comment:
--- NOTE | 2017-09-28 12:47 | ASMTCMCOM ---
CM Note CM Note Notes: POST D/C NOTE Received written message from what is presumably Pt's PCP's office regarding the need to call Maru Bañuelos, Pt's daughter about Pt's issues. Called Maru several times due to her voicemail box being full. Was eventually able to speak with her. Maru grateful for call. Stated Pt. is still refusing all help, but to daughter's knowledge Pt. is not drinking again at this time. Maru would like to know the SNF rehab facilities that [facility] was pursuing. Will try to have mother admitted through PCP office. Maru did not know name of PCP or their office during our call. [facility] sent out a letter listing (5) SNFs who had not yet denied Pt's admission. Also provided comprehensive list of addictions resources. Sent snail mail packet to: Maru Bañuelos, [address] [place] [address] Date Signed: 09/28/2017 12:47 PM Electronically Signed By:Gely Irizarry LCSW
== END 2017-09-26 22:03 | disposition home or self-care (01) | DRG 433 ==
LOC: F3E 15:33 → OBSVTOIN 15:33
PROVIDERS: ADMIT Internal Medicine; ATTEND Internal Medicine
PROC: HZ2ZZZZ Detoxification Services for Substance Abuse Treatment (ICD-10-PCS; principal; 2017-09-20)
DX: K70.10 Alcoholic hepatitis without ascites (principal); K52.9 Noninfective gastroenteritis and colitis, unspecified; F10.230 Alcohol dependence with withdrawal, uncomplicated; E87.1 Hypo-osmolality and hyponatremia; D63.8 Anemia in other chronic diseases classified elsewhere; F41.9 Anxiety disorder, unspecified; G47.00 Insomnia, unspecified; E03.9 Hypothyroidism, unspecified
CPT/HCPCS: 86708-90; 97116-GP; 97162-GP; 97165-GO; 97532-GO; 97535-GO; G0472; J0696; J1956; J3411